=== PATIENT | female | born 1980 | race Caucasian/White ===

== ENCOUNTER 2018-07-08 18:22 | Emergency (ER) | payer BC, MEDICAID ==
[2018-07-08 18:36] VITALS: BP 123/80
--- NOTE | 2018-07-08 19:49 | EDM.PDOC ---
ED HPI GENERAL MEDICAL PROBLEM - General Chief Complaint: Lower Extremity Injury/Pain Stated Complaint: LT FOOT PAIN FROM A DROPPED BOARD Time Seen by Provider: 07/08/18 18:30 Source of Information: Reports: Patient History Limitations: Reports: No Limitations - History of Present Illness INITIAL COMMENTS - FREE TEXT/NARRATIVE: Today while working with her accidentally a 2 x 8 40 and followed top of her left foot dorsum has pain and mild discomfort with walking. Otherwise is healthy. 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: , 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 , Other (See Below) 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 - Infectious Disease History Infectious Disease History: Reports: Chicken Pox Social & Family History - Family History Family Medical History: Unobtainable - Tobacco Use Smoking Status *Q: Never Smoker Second Hand Smoke Exposure: No - Caffeine Use Caffeine Use: Reports: Other Other Caffeine Use: occasional iced cappuccino - Recreational Drug Use Recreational Drug Use: No Review of Systems - Review of Systems Review Of Systems: See Below Constitutional: Reports: No Symptoms, Other Eyes: Reports: No Symptoms Ears: Reports: No Symptoms Nose: Reports: No Symptoms Mouth/Throat: Reports: No Symptoms Respiratory: Reports: No Symptoms Cardiovascular: Reports: No Symptoms GI/Abdominal: Reports: No Symptoms Genitourinary: Reports: No Symptoms Musculoskeletal: Reports: Other (Left foot dorsum pain over the #3 metatarsal) Neurological: Reports: No Symptoms Psychiatric: Reports: No Symptoms ED EXAM, GENERAL - Physical Exam Exam: See Below Exam Limited By: No Limitations General Appearance: Alert, WD/WN, Mild Distress Eye Exam: Bilateral Eye: Normal Inspection Ear Exam: Bilateral Ear: Other (Not checked) Throat/Mouth: Normal Inspection, Normal Lips Respiratory/Chest: No Respiratory Distress Cardiovascular: Normal Peripheral Pulses Peripheral Pulses: 1+: Dorsalis Pedis (L), Dorsalis Pedis (R) GI/Abdominal: Normal Bowel Sounds, Soft, Non-Tender (Female) Exam: Deferred Rectal (Female) Exam: Deferred Back Exam: Normal Inspection Extremities: Normal Inspection, Other (Pain left dorsum proximal third metatarsal non crepitance, deformity or swelling) Psychiatric: Normal Affect Skin Exam: Warm, Dry Lymphatic: No Adenopathy ED TRAUMA EXTREMITY PROCEDURES - Additional/Other Procedure(s) Other (Free Text) Procedure(s): X-ray of foot does not reveal a fracture or periosteal hematoma Course - Vital Signs Last Recorded V/S: Last Vital Signs Temp 36.8 C 07/08/18 18:35 Pulse 64 07/08/18 18:35 Resp 17 07/08/18 18:35 BP 123/80 07/08/18 18:35 Pulse Ox 100 07/08/18 18:35 - Orders/Labs/Meds Orders: Active Orders 24 hr Category Date Time Status Foot Comp Min 3V Lt [CR] Stat Exams 07/08/18 19:13 Taken Departure - Departure Time of Disposition: 19:35 Disposition: Home, Self-Care 01 Condition: Good Clinical Impression: Contusion of left foot Qualifiers: Encounter type: initial encounter Qualified Code(s): S90.32XA - Contusion of left foot, initial encounter - Discharge Information *PRESCRIPTION DRUG MONITORING PROGRAM REVIEWED*: Not Applicable *COPY OF PRESCRIPTION DRUG MONITORING REPORT IN PATIENT RADHA: Not Applicable Instructions: Foot Contusion, [id number] Referrals: Camilo Lin MD [Primary Care Provider] - Forms: ED Department Discharge Additional Instructions: YOU HAVE A CONTUSION OF YOUR LEFT DORSUM OF THE FOOT BONE CALLED A METATARSAL THE PAIN OCCURS FROM THE 2 X 8 BOARD FALLING ON YOUR FOOT BONE AND CONTUSION TO THE NERVE BEARING SARAN WRAP LIKE THIN LAYER THAT COVERS THE BONE GRADUALLY INCREASE YOUR ACTIVITY TOLERATED YOU WILL STILL HAVE PAIN WITH WALKING IT WOULD BE VERY RARE TO HAVE AN OCCULT FRX OF THIS BONE AT YOUR AGE. AND IF YOU HAD AN OCCULT FRX MOST LIKELY YOU WOULD NOT BEAR WEIGHT ON IT AT ALL. SEE YOU MD1 WEEK IN FOLLOW UP APPLY ICE TO THE SORE AREA USE TOGETHER 1000 MG OF TYLENOL WITH 600 MG OF IBUPROFEN EVERY 6 HOURS ' - My Orders Last 24 Hours: My Active Orders 07/08/18 19:13 Foot Comp Min 3V Lt [CR] Stat - Assessment/Plan Last 24 Hours: My Active Orders 07/08/18 19:13 Foot Comp Min 3V Lt [CR] Stat
--- NOTE | 2018-07-11 12:35 | CR ---
INDICATION: Dropped board on top of foot. LEFT FOOT: Three views of the left foot revealed no evidence of a fracture, dislocation, or other significant bone or joint abnormality. [facility]
== END 2018-07-08 19:35 | disposition home or self-care (01) ==
LOC: FB.ED 18:22
DX: S90.32XA Contusion of left foot, initial encounter (principal); X58.XXXA Exposure to other specified factors, initial encounter
CPT/HCPCS: 73630-LT; 99283

== ENCOUNTER 2021-01-01 11:17 | Emergency (ER) | payer BC, MEDICAID ==
[2021-01-01] MEDS ORDERED: Cyclobenzaprine 10 MG Tab PO ONE (12:06)
[2021-01-01] MEDS ORDERED: Ketorolac 60 MG/2 ML SDV IM ONE (12:06)
--- NOTE | 2021-01-01 12:06 | EDM.PDOC ---
ED HPI GENERAL MEDICAL PROBLEM - General Stated Complaint: BACK PAIN Time Seen by Provider: 01/01/21 11:45 Source of Information: Reports: Patient History Limitations: Reports: No Limitations - History of Present Illness INITIAL COMMENTS - FREE TEXT/NARRATIVE: c/o LBP pt up at 7a, felt fine, drove her sons to school, stopped at grocery store for a couple of items, returned home, taking clothes out of dryer at 8:30a and had sharp stabbing pain in left lower back, no radiation, no anterior pain, no n/v, no f/c/d has had kidney stones in past, this seems different okay when resting, inc'd pain with movement no dysuria took APAP 650 mg at 8:45a, did not help says she can swallow only small pills 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 Bilateral Lower Back Pain Score (Numeric/FACES): 6 - Related Data Allergies Allergy/AdvReac Type Severity Reaction Status Date / Time No Known Allergies Allergy Verified 01/01/21 11:43 Home Meds: Home Meds Cyclobenzaprine HCl 10 mg PO TID #21 tablet 01/01/21 [Rx] FLUoxetine HCl [Fluoxetine HCl] 40 mg PO DAILY 01/01/21 [History] Meloxicam 15 mg PO DAILY #14 tablet 01/01/21 [Rx] Sulfamethoxazole/Trimethoprim [Sulfamethoxazole-Tmp Ds Tablet] 1 each PO BID #6 tablet 01/01/21 [Rx] buPROPion HCL [Wellbutrin SR] 150 mg PO DAILY 01/01/21 [History] Past Medical History - Past Health History Medical/Surgical History: Denies 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: , 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 , Other (See Below) 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 - Infectious Disease History Infectious Disease History: Reports: Chicken Pox Social & Family History - Family History Family Medical History: Unobtainable - Caffeine Use Caffeine Use: Reports: Other Other Caffeine Use: occasional iced cappuccino ED ROS GENERAL - Review of Systems Review Of Systems: See Below Constitutional: Reports: No Symptoms HEENT: Reports: No Symptoms Respiratory: Reports: No Symptoms Cardiovascular: Reports: No Symptoms Endocrine: Reports: No Symptoms GI/Abdominal: Reports: No Symptoms : Reports: No Symptoms Musculoskeletal: Reports: Back Pain Skin: Reports: No Symptoms Neurological: Reports: No Symptoms Psychiatric: Reports: No Symptoms Hematologic/Lymphatic: Reports: No Symptoms Immunologic: Reports: No Symptoms ED EXAM,LOWER BACK PAIN/INJURY - Physical Exam Exam: See Below Exam Limited By: No Limitations General Appearance: Alert, WD/WN, Mild Distress Nose: Normal Inspection Throat/Mouth: Normal Inspection Head: Atraumatic, Normocephalic Neck: Normal Inspection, Supple, Non-Tender, Full Range of Motion Respiratory/Chest: No Respiratory Distress, Lungs Clear, Normal Breath Sounds, Chest Non-Tender Cardiovascular: Regular Rate, Rhythm, No Edema, No Murmur, No Rub GI/Abdominal: Normal Bowel Sounds, Soft, Non-Tender, No Distention, Other (NT to deep palp) Back Exam: Other (no SI tender, mild tender across L iliac crest, none on R, tight paravertebral muscles on left, SLR neg to 75 degrees b/l, lay supine gingerly, preferred R lat decub than full supine) Extremities: No Pedal Edema Neurological: Alert, Normal Mood/Affect, Normal Dorsiflexion, CN II-XII Intact, No Motor/Sensory Deficits, Oriented x 3 Psychiatric: Normal Affect, Normal Mood Skin Exam: Warm, Dry, Intact, Normal Color, No Rash Lymphatic: No Adenopathy Course - Vital Signs Last Recorded V/S: Last Vital Signs Temp 36.9 C 01/01/21 11:30 Pulse 81 01/01/21 11:30 Resp 20 01/01/21 11:30 BP 123/71 01/01/21 11:30 Pulse Ox 98 01/01/21 11:30 - Orders/Labs/Meds Orders: Active Orders 24 hr Category Date Time Status CULTURE URINE [RM] Stat Lab 01/01/21 13:04 Ordered methylPREDNISolone Sod Succ [Solu-MEDROL] Med 01/01/21 13:12 Once 125 mg IM ONETIME ONE Labs: Laboratory Tests 01/01/21 Range/Units 12:40 Urine Color Yellow (YELLOW) Urine Appearance Clear (CLEAR) Urine pH 6.0 (5.0-6.5) Ur Specific Wilson 1.025 (1.010-1.025) Urine Protein Negative (NEGATIVE) mg/dL Urine Glucose (UA) Normal (NORMAL) mg/dL Urine Ketones 50 H (NEGATIVE) mg/dL Urine Occult Blood Negative (NEGATIVE) Urine Nitrite Negative (NEGATIVE) Urine Bilirubin Negative (NEGATIVE) Urine Urobilinogen Normal (NEGATIVE) mg/dL Ur Leukocyte Esterase Negative (NEGATIVE) Urine WBC 0-5 (0-5) Ur Squamous Epith Cells Few H (NS,R,O) Urine Bacteria Moderate H (NS) Meds: Medications Discontinued Medications Generic Name Dose Route Start Last Admin Trade Name Milly PRN Reason Stop Dose Admin Cyclobenzaprine HCl 10 mg 01/01/21 12:06 01/01/21 12:28 Flexeril PO 01/01/21 12:07 10 mg ONETIME ONE Administration Ketorolac Tromethamine 60 mg 01/01/21 12:06 01/01/21 12:21 Toradol IM 01/01/21 12:07 60 mg ONETIME ONE Administration - Re-Assessments/Exams Free Text/Narrative Re-Assessment/Exam: 01/01/21 13:19 Comfortable at rest, on right side leaning on her elbow, at bedside. Pain not much better after Toradol 30 mg IM and cyclobenzaprine 10 mg. No sedation after cyclobenzaprine. u/a with moderate bacteria which is unrelated to pain, u/a obtained as a precaution. cannot exclude ovarian cyst altho seems unlikely given absence of abd tenderness no evidence of infection other than low grade UTI hx and PE c/w muscle strain will give additional meds here and continue on meds at home all questions answered, pt indicates she understands instructs advised to inc fluids as there are 15 mg/dl ketones in urine, as hydration should help decrease pain as well Departure - Departure Time of Disposition: 13:13 Disposition: Home, Self-Care 01 Condition: Good Clinical Impression: Low back strain, Urinary tract infection - Discharge Information *PRESCRIPTION DRUG MONITORING PROGRAM REVIEWED*: Not Applicable *COPY OF PRESCRIPTION DRUG MONITORING REPORT IN PATIENT RADHA: Not Applicable Prescriptions: Cyclobenzaprine HCl 10 mg PO TID #21 tablet Meloxicam 15 mg PO DAILY #14 tablet Sulfamethoxazole/Trimethoprim [Sulfamethoxazole-Tmp Ds Tablet] 1 each PO BID #6 tablet Instructions: Lumbosacral Strain, Urinary Tract Infection, Adult Referrals: Camilo Lin MD [Primary Care Provider] - Additional Instructions: For pain and inflammation, take meloxicam 15 mg 1 tab daily for 7 days, longer if needed. For pain and inflammation, take acetaminophen 325 mg 3 tabs 3-4 times a day for 7 days. For spasm, take cyclobenzaprine 10 mg 1 tab 3 times a day. For infection, take sulfamethoxazole-trimethoprim DS 1 tab 2 times a day for 3 days. Use ice for 10 minutes 4 times a day for 2 days. Then use heat for 10 minutes 4 times a day. Rest for 24 hours. Sleep on a firm mattress. Avoid bending and twisting and lifting. See your doctor in 3-4 days for further recommendations. Return to Emergency Department if you are feeling worse. Sepsis Event Note (ED) - Evaluation Sepsis Screening Result: No Definite Risk - Focused Exam Vital Signs: Vital Signs Temp Pulse Resp BP Pulse Ox 01/01/21 11:30 36.9 C 81 20 123/71 98 - My Orders Last 24 Hours: My Active Orders 01/01/21 13:04 CULTURE URINE [RM] Stat 01/01/21 13:12 methylPREDNISolone Sod Succ [Solu-MEDROL] 125 mg IM ONETIME ONE - Assessment/Plan Last 24 Hours: My Active Orders 01/01/21 13:04 CULTURE URINE [RM] Stat 01/01/21 13:12 methylPREDNISolone Sod Succ [Solu-MEDROL] 125 mg IM ONETIME ONE
[2021-01-01] MEDS ORDERED: methylPREDNISolone Sodium Succinate 125 MG/2 ML SDV IM ONE (13:12)
[2021-01-01] MEDS ORDERED: Acetaminophen 325 MG Tab PO ONE (13:20)
[2021-01-01] MEDS ORDERED: methylPREDNISolone Sodium Succinate 40 MG/1 ML SDV ONE (13:43)
[2021-01-01] MEDS ORDERED: Morphine 2 MG/ML SYRINGE IM ONE (14:43)
[2021-01-01 15:31] VITALS: BP 113/53; PULSE 82
== END 2021-01-01 15:15 | disposition home or self-care (01) ==
LOC: FB.ED 11:17
DX: S39.012A Strain of muscle, fascia and tendon of lower back, initial encounter (principal); N39.0 Urinary tract infection, site not specified; Z79.899 Other long term (current) drug therapy; X58.XXXA Exposure to other specified factors, initial encounter
CPT/HCPCS: 81001; 87086; 87088; 87186; 96372; 99283; A9270-GY; J1885; J2270; J2930

== ENCOUNTER 2021-01-04 18:17 | Emergency (ER) | payer BC, MEDICAID ==
--- NOTE | 2021-01-04 19:02 | EDM.PDOC ---
<Joon Gold - Last Filed: 01/05/21 04:36> ED HPI GENERAL MEDICAL PROBLEM - General Chief Complaint: Back Pain or Injury Stated Complaint: LOWER BACK/LEG PAIN Time Seen by Provider: 01/04/21 18:40 - Related Data Allergies Allergy/AdvReac Type Severity Reaction Status Date / Time No Known Allergies Allergy Verified 01/01/21 11:43 Home Meds: Home Meds Cyclobenzaprine HCl 10 mg PO TID #21 tablet 01/01/21 [Rx] FLUoxetine HCl [Fluoxetine HCl] 40 mg PO DAILY 01/01/21 [History] Meloxicam 15 mg PO DAILY #14 tablet 01/01/21 [Rx] Sulfamethoxazole/Trimethoprim [Sulfamethoxazole-Tmp Ds Tablet] 1 each PO BID #6 tablet 01/01/21 [Rx] buPROPion HCL [Wellbutrin SR] 150 mg PO DAILY 01/01/21 [History] Departure - Departure Time of Disposition: 21:30 Disposition: Home, Self-Care 01 Clinical Impression: Left leg pain, Pain in joint involving left pelvic region and thigh, Numbness of left foot, Decreased left Achilles reflex, Lumbar disc herniation with radiculopathy - Discharge Information Instructions: Herniated Disk, [id number], Degenerative Disk Disease Referrals: Camilo Lin MD [Primary Care Provider] - Forms: ED Department Discharge Additional Instructions: Please read discharge instructions on degenerative disc disease and disc protrusion Take all the following medications at the same time for better pain relief Ibuprofen 800 mg with tylenol 1000 mg and flexeril/cyclobenzaprine 10 mg every 8 hours as needed for pain and muscle spasm Tramadol 100 mg every 8 hours as needed for pain that you can't tolerate Follow up with your doctor this week so he can order an MRI of your lumbar spine <Joselo Rodriguez - Last Filed: 01/07/21 07:27> ED HPI GENERAL MEDICAL PROBLEM - General Source of Information: Reports: Patient History Limitations: Reports: No Limitations - History of Present Illness INITIAL COMMENTS - FREE TEXT/NARRATIVE: c/o numb sole of L foot pt in ED 3d ago with pain in her L low back into her L thigh, SLR 75 and neg, had 2+ tender at L SI joint and dx with sacroiliatus, given ibup/apap/prednisone/cyclobenzaprine pt saw Dr Nyarandi this AM in office, dx sciatica, referred to PT, has apt in 8d now with numb at base of L foot which concerned her on exam tonight, SLR is again neg, however has an absent L achilles DTR will obtain imaging looking for tumor vs epidural abscess vs other not working, 3 children at home UC 3d ago with Klebsiella sensitive to tmp/smx DS Left Lower Back Pain Score (Numeric/FACES): 4 Past Medical History - Past Health History Medical/Surgical History: Denies 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: , 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 , 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 (See Below) 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 Psychiatric History: Reports: Depression - Infectious Disease History Infectious Disease History: Reports: Chicken Pox Social & Family History - Family History Family Medical History: Unobtainable - Caffeine Use Caffeine Use: Reports: Soda Other Caffeine Use: occasional iced cappuccino ED ROS GENERAL - Review of Systems Review Of Systems: See Below Constitutional: Reports: No Symptoms HEENT: Reports: No Symptoms Respiratory: Reports: No Symptoms Cardiovascular: Reports: No Symptoms Endocrine: Reports: No Symptoms GI/Abdominal: Reports: No Symptoms : Reports: No Symptoms Musculoskeletal: Reports: Back Pain, Leg Pain, Other (numb L sole of foot) Skin: Reports: No Symptoms Neurological: Reports: No Symptoms Psychiatric: Reports: No Symptoms Hematologic/Lymphatic: Reports: No Symptoms Immunologic: Reports: No Symptoms ED EXAM,LOWER BACK PAIN/INJURY - Physical Exam Exam: See Below Exam Limited By: No Limitations General Appearance: Alert, WD/WN, No Apparent Distress Nose: Normal Inspection, Normal Mucosa, No Blood Throat/Mouth: Normal Voice, No Airway Compromise Head: Atraumatic, Normocephalic Neck: No: Lymphadenopathy (R), Lymphadenopathy (L) Respiratory/Chest: No Respiratory Distress Cardiovascular: Regular Rate, Rhythm GI/Abdominal: Soft, Non-Tender Back Exam: Other (no definite tender at SI joint b/l (was 2+ on L 3d ago in ED), L spine NT, lumbar muscle tightness from 3d ago now gone, walks without difficulty, flexes 30 degrees easily, SLR 75 degrees b/l without radiation into leg) Extremities: Normal Range of Motion, Non-Tender, No Pedal Edema Neurological: Alert, Normal Mood/Affect, Normal Dorsiflexion, Normal Gait, No Motor/Sensory Deficits, Oriented x 3, Other (pinprick and light touch on sole of foot b/l without apparent difference, 3+ brisk patella b/l and R Achilles, however absent L Achilles on L) Psychiatric: Normal Affect, Normal Mood Skin Exam: Warm, Dry, Intact, Normal Color, No Rash Lymphatic: No Adenopathy Course - Vital Signs Last Recorded V/S: Last Vital Signs Temp 36.6 C 01/04/21 21:15 Pulse 85 01/04/21 21:15 Resp 18 01/04/21 21:15 BP 131/75 01/04/21 21:15 Pulse Ox 98 01/04/21 21:15 - Orders/Labs/Meds Labs: Laboratory Tests 01/04/21 01/04/21 01/04/21 Range/Units 19:10 19:15 19:15 WBC 10.8 H (3.0-10.3) x10-3/uL RBC 4.74 (3.60-5.20) x10(6)uL Hgb 13.3 (11.4-15.5) g/dL Hct 40.8 (34.2-48.2) % MCV 86.0 (76.7-100.5) fL MCH 28.0 (23.9-33.9) pg MCHC 32.5 (31.9-34.8) g/dL RDW 13.3 (12.3-16.5) % Plt Count 375 (151-488) x10(3)uL MPV 7.9 (7.1-12.4) fL Neut % (Auto) 72.8 (30.8-76.2) % Lymph % (Auto) 17.1 L (18.4-52.1) % Preble % (Auto) 7.7 (4.4-15.7) % Eos % (Auto) 1.6 (0.6-8.1) % Baso % (Auto) 0.8 (0.2-1.5) % Neut # (Auto) 7.8 H (1.5-6.3) x10-3/uL Lymph # (Auto) 1.9 (1.0-4.4) x10-3/uL Preble # (Auto) 0.8 (0.3-1.0) x10-3/uL Eos # (Auto) 0.2 (0.0-0.8) x10-3/uL Baso # (Auto) 0.1 (0.0-0.1) x10-3/uL Sodium 138 (135-145) mmol/L Potassium 3.7 (3.5-5.3) mmol/L Chloride 102 (100-110) mmol/L Carbon Dioxide 26 (21-32) mmol/L BUN 19 H (7-18) mg/dL Creatinine 1.0 (0.55-1.02) mg/dL Est Cr Clr Drug Dosing 65.95 mL/min Estimated GFR (MDRD) > 60 (>60) BUN/Creatinine Ratio 19.0 (9-20) Glucose 98 (80-116) mg/dL Calcium 8.3 L (8.6-10.2) mg/dL Total Bilirubin 0.2 (0.1-1.3) mg/dL AST 10 (5-25) IU/L ALT 22 (12-36) U/L Alkaline Phosphatase 103 (56-112) IU/L C-Reactive Protein (0.5-0.9) mg/dL Total Protein 7.3 (6.0-8.0) g/dL Albumin 4.0 (3.5-5.2) g/dL Globulin 3.3 g/dL Albumin/Globulin Ratio 1.2 Urine HCG, Qual Negative (NEGATIVE) 01/04/21 Range/Units 19:15 WBC (3.0-10.3) x10-3/uL RBC (3.60-5.20) x10(6)uL Hgb (11.4-15.5) g/dL Hct (34.2-48.2) % MCV (76.7-100.5) fL MCH (23.9-33.9) pg MCHC (31.9-34.8) g/dL RDW (12.3-16.5) % Plt Count (151-488) x10(3)uL MPV (7.1-12.4) fL Neut % (Auto) (30.8-76.2) % Lymph % (Auto) (18.4-52.1) % Preble % (Auto) (4.4-15.7) % Eos % (Auto) (0.6-8.1) % Baso % (Auto) (0.2-1.5) % Neut # (Auto) (1.5-6.3) x10-3/uL Lymph # (Auto) (1.0-4.4) x10-3/uL Preble # (Auto) (0.3-1.0) x10-3/uL Eos # (Auto) (0.0-0.8) x10-3/uL Baso # (Auto) (0.0-0.1) x10-3/uL Sodium (135-145) mmol/L Potassium (3.5-5.3) mmol/L Chloride (100-110) mmol/L Carbon Dioxide (21-32) mmol/L BUN (7-18) mg/dL Creatinine (0.55-1.02) mg/dL Est Cr Clr Drug Dosing mL/min Estimated GFR (MDRD) (>60) BUN/Creatinine Ratio (9-20) Glucose (80-116) mg/dL Calcium (8.6-10.2) mg/dL Total Bilirubin (0.1-1.3) mg/dL AST (5-25) IU/L ALT (12-36) U/L Alkaline Phosphatase (56-112) IU/L C-Reactive Protein 0.2 L (0.5-0.9) mg/dL Total Protein (6.0-8.0) g/dL Albumin (3.5-5.2) g/dL Globulin g/dL Albumin/Globulin Ratio Urine HCG, Qual (NEGATIVE) Meds: Medications Discontinued Medications Generic Name Dose Route Start Last Admin Trade Name Milly PRN Reason Stop Dose Admin Iopamidol 84 ml 01/04/21 19:40 01/04/21 20:05 Isovue-370 (76%) IV 01/04/21 19:41 84 ml . DIRECTED ONE Administration - Re-Assessments/Exams Free Text/Narrative Re-Assessment/Exam: 01/04/21 19:16 unclear cause of sxs, pain well controlled (still 01/13), yet now with numbness at sole of L foot and absent L Achilles signed out to Dr Gold at 7:15p at change of shift 01/07/21 07:24 pt d/c'ed by Dr Gold on 01/04, CT l-spine without contrast with probable L paramedian disc protrusion at L5-S1 with likely impinging and posteriorly displacing L S! nerve root. CT abd/pelvis with contrast with no acute process. Labs unremarkable except borderline inc'd WBC c/w pain. Altho SLR neg, hx and CT c/w herniated disc. Sepsis Event Note (ED) - Evaluation Sepsis Screening Result: No Definite Risk
[2021-01-04] MEDS: Iopamidol 755 Mg/ML 100 ML Bottle IV ONE (20:05)
[2021-01-05 07:57] VITALS: PULSE 85
[2021-01-05 07:58] VITALS: BP 131/75
== END 2021-01-04 21:50 | disposition home or self-care (01) ==
LOC: FB.ED 18:17
DX: M51.16 Intervertebral disc disorders with radiculopathy, lumbar region (principal); R29.2 Abnormal reflex; Z79.899 Other long term (current) drug therapy; M79.652 Pain in left thigh
CPT/HCPCS: 36415; 72131; 74177; 80053; 81025; 85025; 86140; 99283; 99284-25; Q9967

== ENCOUNTER 2021-06-05 13:14 | Emergency (ER) | payer BC, MEDICAID ==
[2021-06-05] MEDS ORDERED: Diphtheria,Pertussis(Acell),Tetanus Vaccine 0.5 ML Syringe IM ONE (13:22)
--- NOTE | 2021-06-05 13:27 | EDM.PDOC ---
ED HPI GENERAL MEDICAL PROBLEM - General Stated Complaint: LACERATION ON R/INDEX FINGER Time Seen by Provider: 06/05/21 13:14 Source of Information: Reports: Patient History Limitations: Reports: No Limitations - History of Present Illness INITIAL COMMENTS - FREE TEXT/NARRATIVE: c/o finger lac does not remember last Td, thinks it was over 10y doing dishes, cut R index finger - Related Data Allergies Allergy/AdvReac Type Severity Reaction Status Date / Time No Known Allergies Allergy Verified 01/01/21 11:43 Home Meds: Home Meds Cyclobenzaprine HCl 10 mg PO TID #21 tablet 01/01/21 [Rx] FLUoxetine HCl [Fluoxetine HCl] 40 mg PO DAILY 01/01/21 [History] Meloxicam 15 mg PO DAILY #14 tablet 01/01/21 [Rx] Sulfamethoxazole/Trimethoprim [Sulfamethoxazole-Tmp Ds Tablet] 1 each PO BID #6 tablet 01/01/21 [Rx] buPROPion HCL [Wellbutrin SR] 150 mg PO DAILY 01/01/21 [History] Past Medical History - Past Health History Medical/Surgical History: Denies Medical/Surgical History [employer] History: Reports: , Spontaneous , Other (See Below) Other [employer] History: hx Psychiatric History: Reports: Depression - Infectious Disease History Infectious Disease History: Reports: Chicken Pox Social & Family History - Family History Family Medical History: No Pertinent Family History - Caffeine Use Caffeine Use: Reports: Soda Other Caffeine Use: occasional iced cappuccino ED ROS GENERAL - Review of Systems Review Of Systems: See Below Constitutional: Reports: No Symptoms HEENT: Reports: No Symptoms Respiratory: Reports: No Symptoms Cardiovascular: Reports: No Symptoms Endocrine: Reports: No Symptoms GI/Abdominal: Reports: No Symptoms : Reports: No Symptoms Musculoskeletal: Reports: No Symptoms Skin: Reports: Wound Neurological: Reports: No Symptoms Psychiatric: Reports: No Symptoms Hematologic/Lymphatic: Reports: No Symptoms Immunologic: Reports: No Symptoms ED EXAM, SKIN/RASH Exam: See Below Exam Limited By: No Limitations General Appearance: Alert, WD/WN, Other (alert, pleasant, mildly anxious) Extremities: Other (R index finger on fingerpad there is a 4 x 4 mm skin flap that is lying flat with margins apposed, 2 sides, no fb's, no swell/red, skin is pink) Course - Orders/Labs/Meds Orders: Active Orders 24 hr Category Date Time Status Vaccines to be Administered [RC] PER UNIT ROUTINE Care 06/05/21 13:22 Ordered Diphth,Pertuss(Acell),Tet Vac [Boostrix] Med 06/05/21 13:22 Once 0.5 ml IM .ONCE ONE Medication Orders Diphtheria/Tetanus/Acell Pertussis (Diphtheria,Pertussis(Acell),Tetanus Vaccine 0.5 Ml Syringe) 0.5 ml IM .ONCE ONE Stop: 06/05/21 13:23 Meds: Medications Generic Name Dose Route Start Last Admin Trade Name Freq PRN Reason Stop Dose Admin Diphtheria/Tetanus/Acell Pertussis 0.5 ml 06/05/21 13:22 Diphtheria,Pertussis(Acell),Tetanus Vaccine 0.5 Ml Syringe IM 06/05/21 13:23 .ONCE ONE - Re-Assessments/Exams Free Text/Narrative Re-Assessment/Exam: 06/05/21 13:26 should heal well with SS that were applied after cleaning by RN Departure - Departure Time of Disposition: 13:23 Disposition: Home, Self-Care 01 Condition: Good Clinical Impression: Finger laceration - Discharge Information *PRESCRIPTION DRUG MONITORING PROGRAM REVIEWED*: Not Applicable *COPY OF PRESCRIPTION DRUG MONITORING REPORT IN PATIENT RADHA: Not Applicable Instructions: Nonsutured Laceration Care Additional Instructions: Keep clean and dry and covered with a bandaid. Avoid putting pressure on your fingertip. Check finger daily. While unlikely, see a physician the same day for any increase in redness, swelling, pain, warmth, fever or drainage. - My Orders Last 24 Hours: My Active Orders 06/05/21 13:22 Vaccines to be Administered [RC] PER UNIT ROUTINE Diphth,Pertuss(Acell),Tet Vac [Boostrix] 0.5 ml IM .ONCE ONE - Assessment/Plan Last 24 Hours: My Active Orders 06/05/21 13:22 Vaccines to be Administered [RC] PER UNIT ROUTINE Diphth,Pertuss(Acell),Tet Vac [Boostrix] 0.5 ml IM .ONCE ONE
[2021-06-05 14:46] VITALS: BP 114/73; PULSE 69
== END 2021-06-05 14:00 | disposition home or self-care (01) ==
LOC: FB.ED 13:14
DX: S61.210A Laceration without foreign body of right index finger without damage to nail, initial encounter (principal); Z23 Encounter for immunization; W26.0XXA Contact with knife, initial encounter; Y93.G1 Activity, food preparation and clean up; Y92.009 Unspecified place in unspecified non-institutional (private) residence as the place of occurrence of the external cause
CPT/HCPCS: 90471; 90715; 99282

== ENCOUNTER 2021-10-21 16:50 | Emergency (ER) | payer BC, MEDICAID ==
[2021-10-21 17:07] VITALS: BP 155/70; PULSE 74
--- NOTE | 2021-10-21 17:29 | EDM.PDOC ---
ED HPI GENERAL MEDICAL PROBLEM - General Stated Complaint: L FOOT INJURY Time Seen by Provider: 10/21/21 17:00 Source of Information: Reports: Patient History Limitations: Reports: No Limitations - History of Present Illness INITIAL COMMENTS - FREE TEXT/NARRATIVE: Patient presented to the ED because of a left foot injury. The tail gate of her car dropped on top of her left foot and she c/o pain especially on ambulation. Left Foot Pain Score (Numeric/FACES): 9 - Related Data Allergies Allergy/AdvReac Type Severity Reaction Status Date / Time No Known Allergies Allergy Verified 06/05/21 14:38 Home Meds: Home Meds Cyclobenzaprine HCl 10 mg PO TID #21 tablet 01/01/21 [Rx] FLUoxetine HCl [Fluoxetine HCl] 40 mg PO DAILY 01/01/21 [History] Meloxicam 15 mg PO DAILY #14 tablet 01/01/21 [Rx] Sulfamethoxazole/Trimethoprim [Sulfamethoxazole-Tmp Ds Tablet] 1 each PO BID #6 tablet 01/01/21 [Rx] buPROPion HCL [Wellbutrin SR] 150 mg PO DAILY 01/01/21 [History] Past Medical History - Past Health History Medical/Surgical History: Denies Medical/Surgical History [employer] History: Reports: , Spontaneous Other [employer] History: hx Psychiatric History: Reports: Anxiety, Depression - Infectious Disease History Infectious Disease History: Reports: Chicken Pox, Measles - Past Surgical History Female Surgical History: Reports: Section Social & Family History - Family History Family Medical History: No Pertinent Family History - Tobacco Use Tobacco Use Status *Q: Unknown Ever Used Tobacco - Caffeine Use Caffeine Use: Reports: Coffee, Soda Other Caffeine Use: occasional iced cappuccino Review of Systems - Review of Systems Review Of Systems: See Below Constitutional: Reports: No Symptoms Eyes: Reports: No Symptoms Ears: Reports: No Symptoms Nose: Reports: No Symptoms Mouth/Throat: Reports: No Symptoms Respiratory: Reports: No Symptoms Cardiovascular: Reports: No Symptoms GI/Abdominal: Reports: No Symptoms Genitourinary: Reports: No Symptoms Musculoskeletal: Reports: No Symptoms Skin: Reports: No Symptoms ED EXAM, GENERAL - Physical Exam Exam: See Below Exam Limited By: No Limitations General Appearance: Alert, No Apparent Distress Eye Exam: Bilateral Eye: PERRL Ears: Normal External Exam, Normal Canal, Hearing Grossly Normal Nose: Normal Inspection, Normal Mucosa, No Blood Throat/Mouth: Normal Inspection, Normal Lips, Normal Teeth, Normal Gums Head: Atraumatic, Normocephalic Neck: Normal Inspection, Supple, Non-Tender, Full Range of Motion Respiratory/Chest: No Respiratory Distress, Lungs Clear, Normal Breath Sounds, No Accessory Muscle Use, Chest Non-Tender Cardiovascular: Normal Peripheral Pulses, Regular Rate, Rhythm, No Edema, No Gallop, No JVD, No Murmur GI/Abdominal: Normal Bowel Sounds, Soft, Non-Tender, No Organomegaly, No Distention, No Abnormal Bruit Back Exam: Normal Inspection, Full Range of Motion Extremities: Normal Inspection, Other (tenderness volar aspect of left foot) Course - Vital Signs Text/Narrative:: Xray left foot-negative Tramadol 100 mg PO x1 Ibuprofen 800 mg PO x1 EVELYN wrap applied by RN Last Recorded V/S: Last Vital Signs Temp 36.5 C 10/21/21 16:55 Pulse 74 10/21/21 16:55 Resp 16 10/21/21 16:55 BP 155/70 H 10/21/21 16:55 Pulse Ox 97 10/21/21 16:55 - Orders/Labs/Meds Orders: Active Orders 24 hr Category Date Time Status Foot Comp Min 3V Lt [CR] Stat Exams 10/21/21 17:02 Taken Meds: Medications Discontinued Medications Generic Name Dose Route Start Last Admin Trade Name Milly PRN Reason Stop Dose Admin Ibuprofen 800 mg 10/21/21 17:37 10/21/21 17:42 Ibuprofen 800 Mg Tab PO 10/21/21 17:38 800 mg NOW STA Administration Tramadol HCl 100 mg 10/21/21 17:37 10/21/21 17:42 Tramadol 50 Mg Tab PO 10/21/21 17:38 100 mg NOW STA Administration Departure - Departure Time of Disposition: 17:45 Disposition: Home, Self-Care 01 Condition: Good Clinical Impression: Foot injury, Contusion - Discharge Information Instructions: Foot Contusion, [id number], Crush Injury of the Foot, [id number] Referrals: Camilo Lin MD [Primary Care Provider] - Forms: ED Department Discharge Additional Instructions: Please read discharge instruction son foot injury and contusion Apply ice, elevate Take ibuprofen 800 mg with tylenol 1000 mg every 8 hours as needed for pain Follow up as needed Sepsis Event Note (ED) - Evaluation Sepsis Screening Result: No Definite Risk - Focused Exam Vital Signs: Vital Signs Temp Pulse Resp BP Pulse Ox 10/21/21 16:55 36.5 C 74 16 155/70 H 97 - My Orders Last 24 Hours: My Active Orders 10/21/21 17:02 Foot Comp Min 3V Lt [CR] Stat - Assessment/Plan Last 24 Hours: My Active Orders 10/21/21 17:02 Foot Comp Min 3V Lt [CR] Stat
[2021-10-21] MEDS ORDERED: Ibuprofen 800 MG Tab PO STA (17:37)
[2021-10-21] MEDS ORDERED: traMADol 50 MG Tab PO STA (17:37)
--- NOTE | 2021-10-21 18:37 | CR ---
INDICATION: Left foot injury. Caught in car door, midfoot. LEFT FOOT: Three views of the left foot were obtained, 10/21/21, and compared with 07/08/18. An acute fracture, dislocation or other significant bone or joint abnormality was not identified. If symptoms persist - if occult fracture site is suspected clinically, reexamination in 10 to 14 days may be helpful. Report was called to Dr. Gold at 1740 hours. [facility]
== END 2021-10-21 17:53 | disposition home or self-care (01) ==
LOC: FB.ED 16:50
DX: S90.32XA Contusion of left foot, initial encounter (principal); W20.8XXA Other cause of strike by thrown, projected or falling object, initial encounter
CPT/HCPCS: 73630; 99283; A9270

== ENCOUNTER 2022-09-09 08:38 | Emergency (ER) | payer BC, MEDICAID ==
[2022-09-09 10:08] VITALS: BP 119/72; PULSE 80
== END 2022-09-09 09:53 | disposition home or self-care (01) ==
LOC: FB.ED 08:38
DX: U07.1 COVID-19 (principal); H10.9 Unspecified conjunctivitis; Z79.899 Other long term (current) drug therapy
CPT/HCPCS: 99282

== ENCOUNTER 2023-03-23 17:44 | Emergency (ER) | payer BC, MEDICAID ==
[2023-03-23 18:18] VITALS: BP 122/81; PULSE 61
== END 2023-03-23 18:24 | disposition home or self-care (01) ==
LOC: FB.ED 17:44
DX: S61.212A Laceration without foreign body of right middle finger without damage to nail, initial encounter (principal); Z98.890 Other specified postprocedural states; W27.4XXA Contact with kitchen utensil, initial encounter
CPT/HCPCS: 12001; 99283

== ENCOUNTER 2024-08-18 17:18 | Emergency (ER) | payer MEDICAID ==
[2024-08-18] MEDS: Ibuprofen 400 MG Tab PO ONE (17:32)
[2024-08-18 19:17] VITALS: BP 120/80; PULSE 88
== END 2024-08-18 19:17 | disposition home or self-care (01) ==
LOC: FB.ED 17:18
DX: S92.024A Nondisplaced fracture of anterior process of right calcaneus, initial encounter for closed fracture (principal); X50.1XXA Overexertion from prolonged static or awkward postures, initial encounter
CPT/HCPCS: 73630-RT; 99283; A9270-GY